=== PATIENT | male | born 1965 | race Hispanic/Latino ===

== ENCOUNTER 2017-04-08 20:57 | Emergency (ER) | payer MEDICARE ==
[2017-04-08 21:23] LABS: URINE BILIRUBIN NEGATIVE (NEGATIVE); URINE BLOOD NEGATIVE (NEGATIVE); URINE CLARITY Clear (Clear); URINE COLOR Yellow (YELLOW); URINE GLUCOSE (UA) NORMAL (Normal); URINE LEUKOCYTE ESTERASE NEG Leu/uL (Negative); URINE NITRATE NEGATIVE (NEGATIVE); URINE PROTEIN NEGATIVE (NEGATIVE); URINE UROBILINOGEN NORMAL mg/dL (0.2-1.0)
[2017-04-08] MEDS: Sodium Chloride 0.9% 1,000 ML IV STA (21:40)
[2017-04-08 21:54] LABS: BASO # 0.1 K/uL (0.0-0.2); BASO % 0.6 % (0.0-2.0); EOS # 0.1 K/uL (0.0-0.7); EOS % 1.1 % (0.0-4.0); HEMOGLOBIN 12.6 g/dL (12.0-18.0); LYMPH # 0.5 K/uL (1.0-4.3); LYMPH % 5.5 % (20.0-40.0); MEAN CORPUSCULAR HEMOGLOBIN 29.3 pg (27.0-31.0); MEAN CORPUSCULAR HGB CONC 32.9 g/dL (33.0-37.0); MEAN PLATELET VOLUME 9.1 fL (7.2-11.7); MONO # 0.1 K/uL (0.0-0.8); MONO % 1.6 % (0.0-10.0); NEUT # 7.8 K/uL (1.8-7.0); NEUT % 91.2 % (50.0-75.0); NRBC % 0.1 % (0.0-2.0); PLATELET COUNT 216 K/uL (130-400); RBC 4.31 Mil/uL (4.40-5.90)
[2017-04-08 22:07] LABS: BLOOD UREA NITROGEN 11 mg/dL (9-20)
[2017-04-08 22:10] LABS: ALBUMIN 3.5 g/dL (3.5-5.0); ALT/SGPT 15 U/L (21-72); AMYLASE 138 U/L (30-110); AST/SGOT 21 U/L (17-59); CALCIUM 7.2 mg/dl (8.6-10.4); GFR AFRICAN-AMERICAN > 60; GFR NON-AFRICAN AMERICAN > 60; LIPASE 32 U/L (23-300); MEAN CELL VOLUME 89.2 fL (80.0-94.0); WHITE BLOOD COUNT 8.5 K/uL (4.8-10.8)
[2017-04-08 22:39] LABS: ANISOCYTOSIS SLIGHT; BANDS 1 % (0-2); GIANT PLATELETS PRESENT; LARGE PLATELETS PRESENT; LYMPHOCYTE 5 % (20-40); MONOCYTE 5 % (0-10); NEUTROPHIL 89 % (50-75); PLATELET ESTIMATE NORMAL (NORMAL); POIKILOCYTOSIS SLIGHT; TOTAL CELLS COUNTED 100
[2017-04-08 22:51] VITALS: BP 107/62; PULSE 62; RESP 18; TEMP 98.2; O2SAT 98
--- NOTE | 2017-04-08 23:04 | CT ---
EXAM: CT Abdomen and Pelvis Without Intravenous Contrast EXAM DATE/TIME: 04/08/2017 9:23 PM CLINICAL HISTORY: 51 years old, male; Pain; Abdominal pain; Flank; Left lower quadrant (llq); Additional info: Left flank pain, dysuria, hiv pos TECHNIQUE: Axial computed tomography images of the abdomen and pelvis without intravenous contrast. All CT scans at this facility use one or more dose reduction techniques, viz.: automated exposure control; ma/kV adjustment per patient size (including targeted exams where dose is matched to indication; i.e. head); or iterative reconstruction technique. Coronal and sagittal reformatted images were created and reviewed. COMPARISON: There are no prior studies for comparison. FINDINGS: Lower thorax: Heart size is normal. There is a small hiatal hernia. There is minimal scarring at the lung bases ABDOMEN: Liver: unremarkable Gallbladder and bile ducts: Gallbladder is partially distended. There is a small amount of radiopaque material in the gallbladder, stones versus vicarious excretion of contrast.There is prominence of the common duct. Pancreas: unremarkable Spleen: unremarkable Adrenals: Right adrenal is unremarkable. There is minimal nodularity to the left adrenal. Kidneys and ureters: Kidneys are normal in size. There is contrast from a prior study in the pelvicalyceal systems and ureters.There is no pelvocaliectasis or ureterectasis. . Stomach and bowel: Stomach is almost empty. Rotation is normal. Small bowel is mildly distended with fluid and air. There are air-filled small bowel loops in the right lower quadrant. Terminal ileum is unremarkable. Appendix is not visualized. There is no pericecal inflammation. There is oral contrast from a prior study throughout the colon. There is scattered diverticulosis Appendix: See stomach and bowel PELVIS: Bladder: unremarkable Reproductive: Seminal vesicles and prostate are unremarkable. ABDOMEN and PELVIS: Intraperitoneal space: There is no free air or free fluid. Bones/joints: There are degenerative changes in the osseus structures. Soft tissues: unremarkable Vasculature: There are vascular calcifications. Lymph nodes: There are mildly enlarged para-aortic nodes. IMPRESSION: Contrast from a prior study in kidneys ureters and bladder, no obstructive uropathy; small amount of radiopaque material in the gallbladder, dependent stones versus vicarious excretion of contrast material, prominent common duct; no acute solid visceral abnormality; possible mild ileus Additional nonemergent findings as described above.
--- NOTE | 2017-04-08 23:05 | C.PDOC ---
History Of Present Illness <Meagan Carey - Last Filed: 04/08/17 23:13> <Jen Batres - Last Filed: 04/08/17 23:37> 51 year old male presents to the ER with a complaint of left flank pain radiating to the left groin area since this morning, associated with dysuria. Patient has a Hx of HIV but states due to insurance issues he has not been on any medications for the past few months and his last CD4 was below 20. Denies hematuria, fever, or chills. (Meagan Carey) History Per: Patient History/Exam Limitations: no limitations Onset/Duration Of Symptoms: Hrs Current Symptoms Are (Timing): Still Present Quality Of Discomfort: Unable To Describe Associated Symptoms: Urinary Symptoms (Dysuria). denies: Fever, Chills, Nausea , Vomiting, Diarrhea Alleviating Factors: None Recent travel outside of the [place]: No <Meagan Carey - Last Filed: 04/08/17 23:13> <Jen Batres - Last Filed: 04/08/17 23:37> Time Seen by Provider: 04/08/17 21:10 Chief Complaint (Nursing): Male Genitourinary Past Medical History Reviewed: Historical Data, Nursing Documentation, Vital Signs - Medical History PMH: HIV, Migraine Surgical History: Appendectomy Family History: States: Unknown Family Hx - Social History Hx Tobacco Use: Yes Hx Alcohol Use: Yes Hx Substance Use: Yes (HEROIN, 10 BAGS/DAILY, SNIFF) - Immunization History Hx Tetanus Toxoid Vaccination: No Hx Influenza Vaccination: No Hx Pneumococcal Vaccination: Yes <Meagan Carey - Last Filed: 04/08/17 23:13> Vital Signs: Last Vital Signs Temp 98.2 F 04/08/17 22:50 Pulse 62 04/08/17 22:50 Resp 18 04/08/17 22:50 BP 107/62 04/08/17 22:50 Pulse Ox 98 04/08/17 23:14 - [facility] DETOXIFICATION SERVICES FOR SUBSTANCE ABUSE TREATMENT (06/21/15) GROUP PSYCHOTHERAPY (06/21/15) Review Of Systems Constitutional: Negative for: Fever, Chills Gastrointestinal: Negative for: Nausea, Vomiting, Diarrhea Genitourinary: Positive for: Other (Left groin pain radiating from left flank) Musculoskeletal: Positive for: Back Pain (Left flank) <Meagan Carey - Last Filed: 04/08/17 23:13> Physical Exam - Physical Exam Appears: Non-toxic, No Acute Distress Skin: Normal Color, Warm, Dry Head: Atraumatic, Normacephalic Eye(s): bilateral: Normal Inspection Oral Mucosa: Moist Chest: Symmetrical, No Tenderness Cardiovascular: Rhythm Regular Respiratory: Normal Breath Sounds, No Rales, No Rhonchi, No Wheezing Gastrointestinal/Abdominal: Soft, No Tenderness Back: No CVA Tenderness Neurological/Psych: Oriented x3, Normal Speech, Normal Cognition <Meagan Carey - Last Filed: 04/08/17 23:13> ED Course And Treatment - Laboratory Results Result Diagrams: 04/08/17 21:51 04/08/17 21:51 O2 Sat by Pulse Oximetry: 98 (Room air) Pulse Ox Interpretation: Normal - CT Scan/US CT abd/pel Other Rad Studies (CT/US): Read By Radiologist, Radiology Report Reviewed CT/US Interpretation: EXAM: CT Abdomen and Pelvis Without Intravenous Contrast. EXAM DATE/TIME: 04/08/2017 9:23 PM. CLINICAL HISTORY: 51 years old , male; Pain; Abdominal pain; Flank; Left lower quadrant (llq); Additional info : Left flank. pain, dysuria, hiv pos. TECHNIQUE: Axial computed tomography images of the abdomen and pelvis without intravenous contrast. All CT. scans at this facility use one or more dose reduction techniques, viz.: automated exposure control;. ma/kV adjustment per patient size (including targeted exams where dose is matched to indication; i.e. head); or iterative reconstruction technique. Coronal and sagittal reformatted images were created and reviewed. COMPARISON: There are no prior studies for comparison. FINDINGS: Lower thorax : Heart size is normal. There is a small hiatal hernia. There is minimal scarring at the. lung bases. ABDOMEN: Liver: unremarkable. Gallbladder and bile ducts: Gallbladder is partially distended. There is a small amount of radiopaque. material in the gallbladder, stones versus vicarious excretion of contrast.There is prominence of the. common duct. Pancreas: unremarkable. Spleen: unremarkable. Adrenals: Right adrenal is unremarkable. There is minimal nodularity to the left adrenal. Kidneys and ureters: Kidneys are normal in size. There is contrast from a prior study in the. pelvicalyceal systems and ureters.There is no pelvocaliectasis or ureterectasis. . Stomach and bowel: Stomach is almost empty. Rotation is normal. Small bowel is mildly distended. with fluid and air. There are air-filled small bowel loops in the right lower quadrant. Terminal ileum is. unremarkable. Appendix is not visualized. There is no pericecal inflammation. There is oral contrast. from a prior study throughout the colon. There is scattered diverticulosis. Appendix: See stomach and bowel. PELVIS: Bladder: unremarkable. Reproductive: Seminal vesicles and prostate are unremarkable. ABDOMEN and PELVIS: Intraperitoneal space: There is no free air or free fluid. Bones/joints: There are degenerative changes in the osseus structures. Soft tissues: unremarkable. Vasculature: There are vascular calcifications. Lymph nodes: There are mildly enlarged para-aortic nodes. IMPRESSION: Contrast from a prior study in kidneys ureters and bladder, no obstructive uropathy;. small amount of radiopaque material in the gallbladder, dependent stones versus vicarious excretion. of contrast material, prominent common duct; no acute solid visceral abnormality; possible mild ileus Progress Note: CT abd/pel, blood work, and urinalysis ordered. Dilaudid and IV fluids administered. <Meagan Carey - Last Filed: 04/08/17 23:13> - Laboratory Results Result Diagrams: 04/08/17 21:51 04/08/17 21:51 <Jen Batres - Last Filed: 04/08/17 23:37> Medical Decision Making <Meagan Carey - Last Filed: 04/08/17 23:13> <Jen Batres - Last Filed: 04/08/17 23:37> Medical Decision Making: Pt with c/o pain on urination now with neg w/u including neg ua and CT without contrast.Will refer for urology f/u if sx persist (Jen Batres) Disposition - Disposition Disposition Time: 23:14 <Meagan Carey - Last Filed: 04/08/17 23:13> <Jen Batres - Last Filed: 04/08/17 23:37> - Disposition Referrals: Sarah Rowan MD [Staff Provider] - Disposition: HOME/ ROUTINE Condition: STABLE Instructions: Dysuria (ED), Flank Pain (ED) Forms: [facility] (Namibian) - Clinical Impression Clinical Impression: Left flank pain, History of dysuria - 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 - Scribe Statement The provider has reviewed the documentation as recorded by the Scribe <Meagan Carey - Last Filed: 04/08/17 23:13> <Jen Batres - Last Filed: 04/08/17 23:37> - Scribe Statement Ad Adams All medical record entries made by the Scribe were at my direction and personally dictated by me. I have reviewed the chart and agree that the record accurately reflects my personal performance of the history, physical exam, medical decision making, and the department course for this patient. I have also personally directed, reviewed, and agree with the discharge instructions and disposition. (Meagan Carey) Physician Patient Turnover Patient Signed Over To: Jen Batres Handoff Comments: pending CT abdomen/pelvis <Meagan Carey - Last Filed: 04/08/17 23:13>
== END 2017-04-09 00:32 | disposition home or self-care (01) ==
LOC: C.ER 20:57
DX: R30.0 Dysuria (principal); R10.9 Unspecified abdominal pain; Z87.891 Personal history of nicotine dependence
CPT/HCPCS: 74176; 80053; 81001; 82150; 83615; 83690; 85025; 87040; 87086; 96361; 96374; 96375; 99284; J1170; J2270; J7040

== ENCOUNTER 2017-09-19 07:47 | Emergency (ER) | payer MEDICARE ==
[2017-09-19 07:47] VITALS: BMI 21.7
[2017-09-19 08:07] VITALS: O2SAT 99
--- NOTE | 2017-09-19 09:03 | C.PDOC ---
History Of Present Illness 51 y/o male with hx hiv c/o right shoulder and arm pain s/p rolling off a park bench and landing on arm about 5 hrs ago. pt did not hit head. Time Seen by Provider: 09/19/17 08:34 Chief Complaint (Nursing): Upper Extremity Problem/Injury History Per: Patient History/Exam Limitations: no limitations Onset/Duration Of Symptoms: Hrs Current Symptoms Are (Timing): Still Present Quality: "Pain" Past Medical History Reviewed: Historical Data, Nursing Documentation, Vital Signs Vital Signs: Last Vital Signs Temp 98.9 F 09/19/17 11:25 Pulse 72 09/19/17 11:25 Resp 18 09/19/17 11:25 BP 134/79 09/19/17 11:25 Pulse Ox 99 09/19/17 19:06 - Medical History PMH: COPD, HIV, Migraine Denies: Diabetes, Hepatitis, HTN, Chronic Kidney Disease, Seizures, Sexually Transmitted Disease Surgical History: Appendectomy - [facility] DETOXIFICATION SERVICES FOR SUBSTANCE ABUSE TREATMENT (06/21/15) GROUP PSYCHOTHERAPY (06/21/15) Family History: States: No Known Family Hx - Social History Hx Tobacco Use: Yes Hx Alcohol Use: No Hx Substance Use: Yes - Immunization History Hx Tetanus Toxoid Vaccination: No Hx Influenza Vaccination: No Hx Pneumococcal Vaccination: No Review Of Systems Constitutional: Negative for: Fever, Chills Musculoskeletal: Positive for: Shoulder Pain, Other (humeral pain) Neurological: Negative for: Weakness, Headache, Dizziness Physical Exam - Physical Exam Appears: Non-toxic, No Acute Distress (pt moving both arms in all directions) Skin: No Rash Head: Atraumatic, Normacephalic Eye(s): bilateral: Normal Inspection, EOMI Nose: Normal Neck: Normal, No Midline Cervical Tenderness, Supple Chest: Symmetrical Cardiovascular: Rhythm Regular Respiratory: Normal Breath Sounds, No Rales, No Rhonchi, No Wheezing Back: Normal Inspection Extremity: Normal ROM (active), Tenderness (to right shoulder), No Deformity, No Swelling Pulses: Left Radial: Normal, Right Radial: Normal Neurological/Psych: Oriented x3, Normal Speech, Normal Cognition, Normal Motor, Normal Sensation ED Course And Treatment O2 Sat by Pulse Oximetry: 99 (RA) Pulse Ox Interpretation: Normal - Other Rad XR Right Humerus X-Ray: Interpreted by Me, Viewed By Me Interpretation: No fractures acute fractures or dislocations. XR Right Shoulder X-Ray: Interpreted by Me, Viewed By Me Interpretation: No acute fractures or dislocations. Progress Note: Plan: Toradol 30mg IM. XR Humerus Right. XR Shoulder Right. Patient requested Toradol stating that Tylenol does not provide relief. Medical Decision Making Medical Decision Making: pt with shoulder and upper arm pain s/p falling off bench. no fx noted on xray. d/c 1855 notified pt with co2 of 72; respiratory will come to start pt on bipap ( rr10 and 5 peep, 40%) Disposition Counseled Patient/Family Regarding: Studies Performed, Diagnosis, Need For Followup - Disposition Referrals: Mendez Cai MD [Staff Provider] - Disposition: HOME/ ROUTINE Disposition Time: 11:06 Condition: GOOD Additional Instructions: Please take ibupofren for pain if needed. Follow up with Dr Cai (orthopedics ) if pain persists. Prescriptions: Ibuprofen [Motrin] 600 mg PO TID #30 tab Instructions: Shoulder Pain (DC) Forms: [facility] (Bhutanese), General Discharge Instructions - Clinical Impression Clinical Impression: Pain, joint, shoulder, right, Fall from other furniture, initial encounter - PA / CHEF DE [employer]OID / Resident Statement MD/DO has reviewed & agrees with the documentation as recorded. - Scribe Statement The provider has reviewed the documentation as recorded by the Scribe (Azamn Dianne) All medical record entries made by the Scribe were at my direction and personally dictated by me. I have reviewed the chart and agree that the record accurately reflects my personal performance of the history, physical exam, medical decision making, and the department course for this patient. I have also personally directed, reviewed, and agree with the discharge instructions and disposition.
[2017-09-19 12:42] VITALS: BP 134/79; PULSE 72; RESP 18; TEMP 98.9
--- NOTE | 2017-09-19 12:57 | RAD ---
PROCEDURE: Radiographs of the right humerus. HISTORY: fell on arm COMPARISON: None. FINDINGS: BONES: Bone alignment is normal. There is no acute displaced fracture or bone destruction.There is diffuse bone demineralization. SOFT TISSUES: Normal. OTHER FINDINGS: None. IMPRESSION: No acute fracture or dislocation.
--- NOTE | 2017-09-19 12:59 | RAD ---
PROCEDURE: Radiographs of the Right Shoulder HISTORY: fell on shoulder COMPARISON: No prior. FINDINGS: BONES: Bone alignment is normal. There is no acute displaced fracture or bone destruction.There is diffuse bone demineralization. JOINTS: Normal. Glenohumeral and acromioclavicular joints preserved. No osteoarthritis. SOFT TISSUES: Normal. OTHER FINDINGS: None. IMPRESSION: No acute fracture or dislocation.
== END 2017-09-19 11:25 | disposition home or self-care (01) ==
LOC: C.ER 07:47
DX: M25.511 Pain in right shoulder (principal); W07.XXXA Fall from chair, initial encounter; Y92.830 Public park as the place of occurrence of the external cause
CPT/HCPCS: 73030; 73060; 96372; 99284; J1885

== ENCOUNTER 2017-11-10 19:51 | Emergency (ER) | payer BC, MEDICARE, OTHER ==
[2017-11-10 19:52] VITALS: BMI 21.7
[2017-11-10] MEDS ORDERED: Albuterol-Ipratrop 3 mg / 0.5 (3 ml) UD ONE (20:07)
[2017-11-10 20:14] VITALS: RESP 20; O2SAT 100
--- NOTE | 2017-11-10 20:24 | C.PDOC ---
History Of Present Illness 52-year-old male, PMHx includes HIV, presents to the emergency department with complaints of lower back pain, dysuria and increased frequency. Pt currently being treated for pneumonia, on Azithromycin and Bactrim. Pt states his CD4 count is low and is not on any therapy at this time. Denies any fever, chills. No other complaints at this time. Time Seen by Provider: 11/10/17 20:21 Chief Complaint (Nursing): Back Pain History Per: Patient History/Exam Limitations: no limitations Onset/Duration Of Symptoms: Days Current Symptoms Are (Timing): Still Present Context: Other Severity: Moderate Pain Scale Rating Of: 4 Location Of Pain/Discomfort: Suprapubic Radiation Of Pain To:: Back Quality Of Discomfort: Dull, Aching Associated Symptoms: denies: Fever, Chills, Nausea, Vomiting Exacerbating Factors: denies: Cough Alleviating Factors: None Last Bowel Movement: Today Recent travel outside of the [place]: No Additional History Per: Patient Past Medical History Reviewed: Historical Data, Nursing Documentation, Vital Signs Vital Signs: Last Vital Signs Temp 98.5 F 11/10/17 20:10 Pulse 91 H 11/10/17 20:10 Resp 20 11/10/17 20:10 BP 108/66 11/10/17 20:10 Pulse Ox 100 11/10/17 22:51 - Medical History PMH: COPD, HIV, Migraine, Pneumonia Denies: Diabetes, Hepatitis, HTN, Chronic Kidney Disease, Seizures, Sexually Transmitted Disease Surgical History: No Surg Hx - [facility] DETOXIFICATION SERVICES FOR SUBSTANCE ABUSE TREATMENT (06/21/15) GROUP PSYCHOTHERAPY (06/21/15) Family History: States: Unknown Family Hx - Social History Hx Tobacco Use: Yes Hx Alcohol Use: No (pt denies) Hx Substance Use: No (pt denies) - Immunization History Hx Tetanus Toxoid Vaccination: Yes Hx Influenza Vaccination: Yes Hx Pneumococcal Vaccination: Yes Review Of Systems Constitutional: Negative for: Fever, Chills Cardiovascular: Negative for: Chest Pain Respiratory: Negative for: Shortness of Breath Gastrointestinal: Positive for: Abdominal Pain. Negative for: Vomiting Genitourinary: Positive for: Dysuria, Frequency. Negative for: Penile Discharge , Scrotal Pain Musculoskeletal: Positive for: Back Pain (mild) Skin: Negative for: Rash Neurological: Negative for: Weakness Psych: Negative for: Anxiety Physical Exam - Physical Exam Appears: Non-toxic, No Acute Distress Skin: Normal Color, Warm, Dry, No Rash Head: Atraumatic, Normacephalic Eye(s): bilateral: Normal Inspection, PERRL, EOMI Nose: Normal Oral Mucosa: Moist Lips: Normal Appearing Neck: Supple Chest: Symmetrical Cardiovascular: Rhythm Regular, No Murmur Respiratory: No Rales, Rhonchi (scattered), No Wheezing Gastrointestinal/Abdominal: Soft, Tenderness (mild suprapubic), No Guarding, No Rebound Back: No CVA Tenderness, Muscle Spasm Extremity: Normal ROM, No Deformity, No Swelling Extremity: Bilateral: Atraumatic Neurological/Psych: Oriented x3, Normal Speech Gait: Steady ED Course And Treatment - Laboratory Results Result Diagrams: 11/10/17 21:09 11/10/17 21:09 O2 Sat by Pulse Oximetry: 100 Pulse Ox Interpretation: Normal (RA) - Radiology CXR: Interpreted by Me, Viewed By Me CXR Interpretation: Yes: Other (rll scar s/p empyema drainage). No: Infiltrates , Fracture, Cardiomegaly Reevaluation Time: 23:05 Reassessment Condition: Improved Medical Decision Making Medical Decision Making: Upon provider reevaluation patient is feeling better, is medically stable, and requires no further treatment in the ED at this time. Patient will be discharged home with Rx for tramadol . Counseling was provided and all questions were answered regarding diagnosis and need for follow up with the referred clinic. There is agreement to discharge plan. Return if symptoms persist or worsen. Disposition Counseled Patient/Family Regarding: Studies Performed, Diagnosis, Need For Followup, Rx Given - Disposition Referrals: [facility] [Outside] [facility] [Outside] Disposition: HOME/ ROUTINE Disposition Time: 20:24 Condition: FAIR Additional Instructions: Please return if symptoms recur Prescriptions: traMADol [Ultram] 50 mg PO TID PRN #15 tab PRN Reason: Pain, Severe (8-10) Instructions: Dysuria, Adult (DC) Forms: [facility] (Hebrew) - Clinical Impression Clinical Impression: Low back pain, Dysuria - Scribe Statement The provider has reviewed the documentation as recorded by the Scribe (remberto Cai) All medical record entries made by the Scribe were at my direction and personally dictated by me. I have reviewed the chart and agree that the record accurately reflects my personal performance of the history, physical exam, medical decision making, and the department course for this patient. I have also personally directed, reviewed, and agree with the discharge instructions and disposition.
[2017-11-10] MEDS ORDERED: Sodium Chloride 0.9% 1,000 ML IV ONE (20:35)
[2017-11-10] MEDS ORDERED: Sodium Chloride 0.9% 1,000 ML ONE (20:55)
[2017-11-10] MEDS: Albuterol-Ipratrop 3 mg / 0.5 (3 ml) UD IH SCH ×3 (21:00→21:30)
[2017-11-10 21:14] LABS: MEAN PLATELET VOLUME 7.5 fL (7.2-11.7)
[2017-11-10 21:25] LABS: HEMOGLOBIN 11.1 g/dL (12.0-18.0); MEAN CORPUSCULAR HEMOGLOBIN 30.3 pg (27.0-31.0); MEAN CORPUSCULAR HGB CONC 34.4 g/dL (33.0-37.0); RBC 3.65 Mil/uL (4.40-5.90); RED CELL DISTRIBUTION WIDTH 18.6 % (11.5-14.5); WHITE BLOOD COUNT 9.8 K/uL (4.8-10.8)
[2017-11-10 21:26] LABS: INR 1.1; PROTHROMBIN TIME 12.4 SECONDS (9.7-12.2)
[2017-11-10 21:29] LABS: ALB/GLOB RATIO 0.9 (1.0-2.1); ALBUMIN 3.6 g/dL (3.5-5.0); ALT/SGPT 19 U/L (21-72); AST/SGOT 21 U/L (17-59); BLOOD UREA NITROGEN 22 mg/dL (9-20); CALCIUM 9.2 mg/dl (8.6-10.4); GFR AFRICAN-AMERICAN > 60; GFR NON-AFRICAN AMERICAN > 60; LIPASE 102 U/L (23-300)
[2017-11-10 21:48] LABS: SQUAMOUS EPITHIAL 1 /hpf (0-5); URINE BILIRUBIN NEGATIVE (NEGATIVE); URINE BLOOD 3+ (NEGATIVE); URINE CLARITY Hazy (Clear); URINE COLOR Yellow (YELLOW); URINE GLUCOSE (UA) NORMAL (Normal); URINE LEUKOCYTE ESTERASE NEG Leu/uL (Negative); URINE PROTEIN NEGATIVE (NEGATIVE); URINE UROBILINOGEN NORMAL mg/dL (0.2-1.0)
[2017-11-10 21:54] LABS: VENOUS BLOOD GAS BASE EXCESS 0.8 mmol/L (0.0-2.0); VENOUS BLOOD GAS PCO2 39 mmHg (40-60); VENOUS BLOOD GAS PO2 43 mm/Hg (30-55); VENOUS BLOOD PH 7.42 (7.32-7.43)
[2017-11-10 21:58] LABS: NEUT # 6.9 K/uL (1.8-7.0)
[2017-11-10 21:59] LABS: EOS # 0.1 K/uL (0.0-0.7)
[2017-11-10 22:00] LABS: LYMPH # 1.6 K/uL (1.0-4.3); MONO # 1.4 K/uL (0.0-0.8)
[2017-11-11 00:37] VITALS: BP 110/70; PULSE 90; TEMP 98.4
--- NOTE | 2017-11-11 08:24 | RAD ---
Date of service: 11/10/2017 HISTORY: s/p pneumonia COMPARISON: No prior. TECHNIQUE: Chest PA and lateral FINDINGS: LUNGS: Triangular-shaped low-density opacity inferior central to lateral right lung base with right miryam diaphragmatic pleural tenting. Some right infrahilar bronchiectasis suspect. Consolidation right middle lobe component also suggested on lateral view. Infiltrate in the impart scarring inferred. PLEURA: No significant pleural effusion identified. No pneumothorax apparent. Some concomitant right major visual pathology also a consideration CARDIOVASCULAR: Normal heart size. No angelito pulmonary venous congestion OSSEOUS STRUCTURES: Scoliosis VISUALIZED UPPER ABDOMEN: Normal. OTHER FINDINGS: None. IMPRESSION: Right mid to inferior consolidation as above. Right pleural parenchymal involvement component suspect. Consider CT of the chest with IV contrast enhancement for further assessment
--- NOTE | 2017-11-11 09:08 | CT ---
Date of service: 11/10/2017 PROCEDURE: CT Abdomen and Pelvis without intravenous contrast HISTORY: low back pain, hematuria COMPARISON: None. TECHNIQUE: Multiple contiguous axial images were performed through the abdomen and pelvis without use intravenous contrast. Subsequently, sagittal and coronal reformatted images were obtained. Radiation dose: Total exam DLP = 256 mGy-cm. This CT exam was performed using one or more of the following dose reduction techniques: Automated exposure control, adjustment of the mA and/or kV according to patient size, and/or use of iterative reconstruction technique. FINDINGS: LOWER THORAX: Focal consolidation in the periphery of the right middle lobe. 3 millimeter subpleural nodule versus scarring within the right lower lobe. Trace right pleural effusion. LIVER: Unremarkable. No gross lesion or ductal dilatation. GALLBLADDER AND BILE DUCTS: Unremarkable. PANCREAS: Unremarkable. No gross lesion or ductal dilatation. SPLEEN: Unremarkable. ADRENALS: Unremarkable. No mass. KIDNEYS AND URETERS: Unremarkable. No hydronephrosis. No solid mass. VASCULATURE: Unremarkable. No aortic aneurysm. BOWEL: Mild mural thickening versus underdistention of the sigmoid colon. APPENDIX: Not well identified. PERITONEUM: Unremarkable. No free fluid. No free air. LYMPH NODES: Few shotty para-aortic and inguinal lymph nodes. Few shotty mesenteric nodes. BLADDER: Unremarkable. REPRODUCTIVE: Unremarkable. BONES: Degenerative changes in the spine. OTHER FINDINGS: Study limited secondary to motion artifact and lack of intravenous contrast. Atherosclerotic disease of the aorta. IMPRESSION: Prominent focal consolidation within the right middle lobe of the lung concerning for infiltrate. Follow-up resolution to exclude underlying pathology. Mild colitis versus underdistention. Clinical correlation. Additional findings as above. These findings were preliminarily reported at 12:35 a.m. on 11/11/[address] Jai Nieto from [facility].
== END 2017-11-11 00:37 | disposition home or self-care (01) ==
LOC: C.ER 19:51
DX: M54.5 Low back pain (principal); R30.0 Dysuria; J44.9 Chronic obstructive pulmonary disease, unspecified; Z87.01 Personal history of pneumonia (recurrent); F17.210 Nicotine dependence, cigarettes, uncomplicated
CPT/HCPCS: 71046; 74176; 80053; 81001; 82803; 83690; 85025; 85610; 85730; 94640; 96361; 96374; 96375; 99285; J1885; J2405; J7030